=== PATIENT | female | born 1990 | race Caucasian/White ===

== ENCOUNTER 2018-04-30 13:00 | Emergency (ER) | payer OTHER ==
[2018-04-30 15:34] LABS: ADD MAN DIFF? NO
[2018-04-30 15:36] LABS: WHITE BLOOD COUNT 9.3 10^3/ul (4.8-10.8)
[2018-04-30 15:37] LABS: BASOPHILS % 0.3 % (0.0-2.0); EOSINOPHILS # 0.1 10^3/ul (0.0-0.5); HEMATOCRIT 35.1 % (37.0-47.0); HEMOGLOBIN 12.2 g/dl (12.0-16.0); LYMPHOCYTES # 2.6 10^3/ul (0.8-2.9); LYMPHOCYTES % 27.9 % (15.0-51.0); MEAN CORPUSCULAR HEMOGLOBIN 30.7 pg (29.0-33.0); MEAN CORPUSCULAR HGB CONC 34.8 g/dl (32.0-37.0); MEAN CORPUSCULAR VOLUME 88.2 fl (82.0-101.0); MEAN PLATELET VOLUME 11.2 fl (7.4-10.4); MONOCYTE # 0.4 10^3/ul (0.3-0.9); MONOCYTES % 4.1 % (0.0-11.0); NEUTROPHIL # 6.2 10^3/ul (1.6-7.5); NEUTROPHILS % 66.3 % (39.0-77.0); PLATELET COUNT 237 10^3/UL (140-415); RED BLOOD COUNT 3.98 10^6/ul (4.20-5.40); RED CELL DISTRIBUTION WIDTH 12.5 % (11.5-14.5)
[2018-04-30 15:48] LABS: ADD UMIC YES; UR ASCORBIC ACID NEGATIVE (NEGATIVE); UR BACTERIA FEW /HPF (NONE SEEN); UR BILIRUBIN (Dip) NEGATIVE (NEGATIVE); UR BLOOD (Dip) 3+ mg/dL (NEGATIVE); UR CLARITY CLOUDY (CLEAR); UR COLOR YELLOW (YELLOW); UR GLUCOSE (Dip) NEGATIVE (NEGATIVE); UR KETONES (Dip) NEGATIVE (NEGATIVE); UR LEUKOCYTE ESTERASE (Dip) 3+ Leu/ul (NEGATIVE); UR MUCUS FEW /HPF (NONE SEEN); UR NITRITE (Dip) NEGATIVE (NEGATIVE); UR RBC 10 /HPF (0-5); UR SPECIFIC GRAVITY (Dip) 1.016 (1.003-1.030); UR SQUAMOUS EPITHELIAL CELL MODERATE /HPF (FEW); UR TOTAL PROTEIN (Dip) NEGATIVE (NEGATIVE); UR UROBILINOGEN (Dip) NEGATIVE (NEGATIVE); UR WBC 85 /HPF (0-5)
[2018-04-30] MEDS: CEPHALEXIN 500 MG CAP PO (16:59)
[2018-04-30 18:23] LABS: ABO/RH TYPE 1 1
== END 2018-04-30 19:32 | disposition home or self-care (01) ==
LOC: FTE 13:00
DX: O20.0 Threatened abortion (principal); Z3A.14 14 weeks gestation of pregnancy
CPT/HCPCS: 36415; 76801; 81001; 84702; 85025; 86900; 86901; 99284-25

== ENCOUNTER 2018-08-26 09:42 | Outpatient (CLI) | payer OTHER ==
[2018-08-26 10:43] LABS: ADD UMIC NO; UR ASCORBIC ACID NEGATIVE (NEGATIVE); UR BILIRUBIN (Dip) NEGATIVE (NEGATIVE); UR BLOOD (Dip) NEGATIVE (NEGATIVE); UR CLARITY CLEAR (CLEAR); UR COLOR YELLOW (YELLOW); UR GLUCOSE (Dip) NEGATIVE (NEGATIVE); UR KETONES (Dip) NEGATIVE (NEGATIVE); UR LEUKOCYTE ESTERASE (Dip) NEGATIVE Leu/ul (NEGATIVE); UR NITRITE (Dip) NEGATIVE (NEGATIVE); UR SPECIFIC GRAVITY (Dip) 1.004 (1.003-1.030); UR TOTAL PROTEIN (Dip) NEGATIVE (NEGATIVE); UR UROBILINOGEN (Dip) NEGATIVE (NEGATIVE)
[2018-08-26] MEDS ORDERED: LACTATED RINGER'S 1,000 ML IV (11:30)
[2018-08-26] MEDS: LACTATED RINGER'S 1,000 ML IV (11:59)
[2018-08-26] MEDS: TERBUTALINE 1 MG/ML INJ SC (12:12)
[2018-08-26] MEDS: BETAMET NA PHOS/AC(6 MG/ML) 2 ML INJ SYG IM (14:01)
== END 2018-08-26 14:00 | disposition home or self-care (01) ==
LOC: OBT 09:42 → L-D 09:42 → OBT 14:00
DX: O62.9 Abnormality of forces of labor, unspecified (principal); Z3A.31 31 weeks gestation of pregnancy
CPT/HCPCS: 36415; 76815; 76817; 76818; 81003; 87086; 96360; 96372

== ENCOUNTER 2018-08-27 13:14 | Outpatient (CLI) | payer OTHER ==
[2018-08-27] MEDS: BETAMET NA PHOS/AC(6 MG/ML) 2 ML INJ SYG IM (14:15)
== END 2018-08-27 14:30 | disposition home or self-care (01) ==
LOC: OBT 13:14 → L-D 13:14 → OBT 14:30
DX: O62.9 Abnormality of forces of labor, unspecified (principal); Z3A.31 31 weeks gestation of pregnancy
CPT/HCPCS: 96372

== ENCOUNTER 2018-10-20 13:22 | Inpatient (IN) | payer OTHER ==
[2018-10-20 14:25] LABS: ADD MAN DIFF? NO
[2018-10-20] MEDS ORDERED: OXYTOCIN 30 UNITS/LR 500 ML IV (14:30)
[2018-10-20] MEDS ORDERED: CARBOPROST 250 MCG INJ IM (14:30)
[2018-10-20] MEDS ORDERED: CEFAZOLIN 2 GM/50 ML (PMX) 50 ML IVPB (14:30)
[2018-10-20] MEDS ORDERED: MISOPROSTOL 200 MCG TAB PR (14:30)
[2018-10-20] MEDS ORDERED: METHYLERGONOVINE 0.2 MG INJ IM (14:30)
[2018-10-20] MEDS: LACTATED RINGER'S 1,000 ML IV ×2 (14:37→15:59)
[2018-10-20 14:38] LABS: BASOPHILS % 0.2 % (0.0-2.0); EOSINOPHILS # 0.1 10^3/ul (0.0-0.5); HEMATOCRIT 34.9 % (37.0-47.0); HEMOGLOBIN 11.6 g/dl (12.0-16.0); LYMPHOCYTES # 2.5 10^3/ul (0.8-2.9); LYMPHOCYTES % 26.1 % (15.0-51.0); MEAN CORPUSCULAR HEMOGLOBIN 28.5 pg (29.0-33.0); MEAN CORPUSCULAR HGB CONC 33.2 g/dl (32.0-37.0); MEAN CORPUSCULAR VOLUME 85.7 fl (82.0-101.0); MEAN PLATELET VOLUME 12.1 fl (7.4-10.4); MONOCYTE # 0.4 10^3/ul (0.3-0.9); MONOCYTES % 3.9 % (0.0-11.0); NEUTROPHIL # 6.5 10^3/ul (1.6-7.5); NEUTROPHILS % 68.6 % (39.0-77.0); PLATELET COUNT 245 10^3/UL (140-415); RED BLOOD COUNT 4.07 10^6/ul (4.20-5.40); RED CELL DISTRIBUTION WIDTH 13.8 % (11.5-14.5)
[2018-10-20 14:38] LABS: WHITE BLOOD COUNT 9.5 10^3/ul (4.8-10.8)
[2018-10-20 14:50] LABS: INR 0.93; PROTIME 12.6 Sec (11.9-14.9)
[2018-10-20 14:51] LABS: PARTIAL THROMBOPLASTIN TIME 27.6 Sec (23.0-35.0)
[2018-10-20] MEDS ORDERED: FENTAnyl 50 MCG/ML VIAL (17:31)
[2018-10-20] MEDS ORDERED: ONDANSETRON 4 MG INJ (17:31)
[2018-10-20] MEDS ORDERED: DEXAMETHASONE 4 MG/ML 1 ML INJ (17:32)
[2018-10-20] MEDS ORDERED: ESMOLOL 0 ML (18:36)
[2018-10-20] MEDS ORDERED: DIPHENHYDRAMINE 50 MG INJ (18:37)
[2018-10-20 20:34] LABS: HEPATITIS B SURFACE ANTIGEN NEGATIVE (NEGATIVE)
[2018-10-20] MEDS: AZITHROMYCIN 500MG/NS (PMX) 250 ML IVPB (20:41)
[2018-10-20] MEDS: OXYTOCIN 30 UNITS/LR 500 ML IV (22:12)
[2018-10-21] MEDS ORDERED: HYDROCODONE/APAP (5/325) TAB PO
[2018-10-21] MEDS ORDERED: METHYLERGONOVINE 0.2 MG INJ IM
[2018-10-21] MEDS ORDERED: MISOPROSTOL 200 MCG TAB PR
[2018-10-21] MEDS ORDERED: ONDANSETRON 4 MG INJ IV
[2018-10-21] MEDS ORDERED: NA PHOSPHATE/BIPHOS 133 ML ENEMA PR
[2018-10-21] MEDS ORDERED: NALOXONE (0.4 MG/ML) INJ IV
[2018-10-21] MEDS ORDERED: CARBOPROST 250 MCG INJ IM
[2018-10-21] MEDS ORDERED: OXYCODONE/ACETAMINOPHEN (5/325) TAB PO
[2018-10-21] MEDS ORDERED: HYDROmorphONE 0.5 MG/0.5 ML SYG IV ×2
[2018-10-21] MEDS ORDERED: OXYTOCIN 30 UNITS/LR 500 ML IV
[2018-10-21] MEDS ORDERED: ZOLPIDEM 5 MG TAB PO
[2018-10-21] MEDS ORDERED: DIPHENHYDRAMINE 50 MG INJ IV
[2018-10-21] MEDS: CEFAZOLIN 2 GM/50 ML (PMX) 50 ML IVPB ×3 (00:27→16:25)
[2018-10-21] MEDS: CLINDAMYCIN 300 MG CAP PO ×5 (00:29→23:47)
[2018-10-21] MEDS: KETOROLAC 30 MG INJ IV ×2 (00:30→14:52)
[2018-10-21] MEDS: LACTATED RINGER'S 1,000 ML IV (03:00)
[2018-10-21] MEDS: IBUPROFEN 800 MG TAB PO ×4 (06:00→21:09)
[2018-10-21 06:27] LABS: ADD MAN DIFF? NO
[2018-10-21 06:30] LABS: WHITE BLOOD COUNT 13.1 10^3/ul (4.8-10.8)
[2018-10-21 06:30] LABS: BASOPHILS % 0.2 % (0.0-2.0); EOSINOPHILS % 0.1 % (0.0-7.0); HEMATOCRIT 29.4 % (37.0-47.0); HEMOGLOBIN 9.9 g/dl (12.0-16.0); LYMPHOCYTES # 2.3 10^3/ul (0.8-2.9); LYMPHOCYTES % 17.2 % (15.0-51.0); MEAN CORPUSCULAR HEMOGLOBIN 28.9 pg (29.0-33.0); MEAN CORPUSCULAR HGB CONC 33.7 g/dl (32.0-37.0); MEAN PLATELET VOLUME 11.3 fl (7.4-10.4); MONOCYTE # 0.8 10^3/ul (0.3-0.9); PLATELET COUNT 196 10^3/UL (140-415); RED BLOOD COUNT 3.42 10^6/ul (4.20-5.40); RED CELL DISTRIBUTION WIDTH 13.8 % (11.5-14.5)
[2018-10-21] MEDS: SENNA/DOCUSATE NA (8.6MG/50MG) TAB PO ×3 (09:37→21:08)
[2018-10-21] MEDS: KETOROLAC 30 MG INJ IM (11:24)
[2018-10-21 15:40] LABS: RAPID PLASMA REAGIN NONREACTIVE (NR)
[2018-10-21] MEDS: BISACODYL 10 MG SUPP PR (20:25)
[2018-10-22] MEDS: CLINDAMYCIN 300 MG CAP PO ×2 (06:31→12:32)
[2018-10-22] MEDS: IBUPROFEN 800 MG TAB PO ×3 (06:32→21:26)
[2018-10-22 08:26] LABS: ADD MAN DIFF? NO
[2018-10-22 08:43] LABS: BASOPHILS % 0.1 % (0.0-2.0); EOSINOPHILS # 0.1 10^3/ul (0.0-0.5); EOSINOPHILS % 0.7 % (0.0-7.0); HEMATOCRIT 29.6 % (37.0-47.0); HEMOGLOBIN 9.7 g/dl (12.0-16.0); LYMPHOCYTES # 1.5 10^3/ul (0.8-2.9); LYMPHOCYTES % 13.4 % (15.0-51.0); MEAN CORPUSCULAR HEMOGLOBIN 28.9 pg (29.0-33.0); MEAN CORPUSCULAR HGB CONC 32.8 g/dl (32.0-37.0); MEAN CORPUSCULAR VOLUME 88.1 fl (82.0-101.0); MEAN PLATELET VOLUME 12.4 fl (7.4-10.4); MONOCYTE # 0.8 10^3/ul (0.3-0.9); MONOCYTES % 7.2 % (0.0-11.0); NEUTROPHIL # 8.8 10^3/ul (1.6-7.5); NEUTROPHILS % 78.2 % (39.0-77.0); PLATELET COUNT 197 10^3/UL (140-415); RED BLOOD COUNT 3.36 10^6/ul (4.20-5.40); RED CELL DISTRIBUTION WIDTH 14.4 % (11.5-14.5)
[2018-10-22 08:43] LABS: WHITE BLOOD COUNT 11.3 10^3/ul (4.8-10.8)
[2018-10-22] MEDS: SENNA/DOCUSATE NA (8.6MG/50MG) TAB PO ×2 (09:00→21:26)
[2018-10-22] MEDS: ACETAMINOPHEN 325 MG TAB PO ×2 (15:26→21:27)
[2018-10-22] MEDS: CIPROFLOXACIN 250 MG TAB PO (18:25)
[2018-10-22] MEDS: LANOLIN HPA 1 PKT TOP (18:46)
[2018-10-23] MEDS: ACETAMINOPHEN 325 MG TAB PO ×3 (03:09→16:48)
[2018-10-23] MEDS: IBUPROFEN 800 MG TAB PO ×2 (06:21→15:14)
[2018-10-23] MEDS: CIPROFLOXACIN 250 MG TAB PO ×2 (06:21→18:33)
[2018-10-23 07:29] LABS: ADD MAN DIFF? NO
[2018-10-23 07:32] LABS: BASOPHILS % 0.4 % (0.0-2.0); EOSINOPHILS # 0.2 10^3/ul (0.0-0.5); EOSINOPHILS % 2.8 % (0.0-7.0); HEMOGLOBIN 9.4 g/dl (12.0-16.0); LYMPHOCYTES # 2.8 10^3/ul (0.8-2.9); LYMPHOCYTES % 36.7 % (15.0-51.0); MEAN CORPUSCULAR HEMOGLOBIN 28.7 pg (29.0-33.0); MEAN CORPUSCULAR HGB CONC 32.4 g/dl (32.0-37.0); MEAN CORPUSCULAR VOLUME 88.7 fl (82.0-101.0); MEAN PLATELET VOLUME 11.9 fl (7.4-10.4); MONOCYTE # 0.5 10^3/ul (0.3-0.9); MONOCYTES % 6.8 % (0.0-11.0); NEUTROPHILS % 52.5 % (39.0-77.0); PLATELET COUNT 185 10^3/UL (140-415); RED BLOOD COUNT 3.27 10^6/ul (4.20-5.40); RED CELL DISTRIBUTION WIDTH 14.4 % (11.5-14.5)
[2018-10-23 07:32] LABS: WHITE BLOOD COUNT 7.5 10^3/ul (4.8-10.8)
[2018-10-23] MEDS: DIPHTH/TET/ACEL PERTUSS (ADULT) 0.5 ML VIAL IM* (09:42)
[2018-10-23] MEDS: MEASLES,MUMPS,RUBELLA VACCINE INJ SC* (09:43)
[2018-10-23] MEDS: SENNA/DOCUSATE NA (8.6MG/50MG) TAB PO (10:06)
== END 2018-10-23 18:00 | disposition home or self-care (01) | DRG 788 ==
LOC: L-D 13:22 → PP1 22:04
PROVIDERS: Obstetrics & Gynecology
PROC: 10D00Z1 Extraction of Products of Conception, Low, Open Approach (ICD-10-PCS; principal; 2018-10-20 15:30)
DX: O34.219 Maternal care for unspecified type scar from previous cesarean delivery (principal); O99.214 Obesity complicating childbirth; Z3A.39 39 weeks gestation of pregnancy; Z37.0 Single live birth
CPT/HCPCS: 85025; 85610; 85730; 86592; 86850; 86870; 86900; 86901; 87340; 99464